=== PATIENT | male | born 1995 | race Caucasian/White ===

== ENCOUNTER 2019-08-07 12:24 | Emergency (ER) | payer SELFPAY ==
[~2019-08-07] VITALS: Ht 172.7 cm; Wt 96.7 kg
[~2019-08-07 12:24] MED LIST: IBUP-1542 PO
[2019-08-07 12:29] VITALS: BP 152/88; PULSE 82; RESP 22; Ht 172.7 cm; Wt 96.7 kg
[2019-08-07] MEDS ORDERED: IBUPROFEN 600 MG TAB PO ONE (13:30)
== END 2019-08-07 14:41 | disposition home or self-care (01) ==
LOC: FTE 12:24
DX: F41.1 Generalized anxiety disorder (principal); R07.89 Other chest pain; J45.909 Unspecified asthma, uncomplicated
CPT/HCPCS: 71045; 93005